=== PATIENT | female | born 1980 | race Caucasian/White ===

== ENCOUNTER 2018-11-29 13:02 | Outpatient (CLI) | payer BC | END 2018-11-29 15:35 | disposition home or self-care (01) | LOC: OBT 13:02 → L-D 13:02 → OBT 15:35 | DX: O36.8130 Decreased fetal movements, third trimester, not applicable or unspecified (principal); Z3A.39 39 weeks gestation of pregnancy | CPT/HCPCS: 76818 ==

== ENCOUNTER 2018-12-02 10:54 | Outpatient (CLI) | payer BC | END 2018-12-02 12:50 | disposition home or self-care (01) | LOC: OBT 10:54 → L-D 10:54 → OBT 12:50 | DX: O36.8130 Decreased fetal movements, third trimester, not applicable or unspecified (principal); Z3A.39 39 weeks gestation of pregnancy | CPT/HCPCS: 76818 ==

== ENCOUNTER 2018-12-05 12:19 | Inpatient (IN) | payer BC ==
[2018-12-05] MEDS ORDERED: MISOPROSTOL 200 MCG TAB PR ×2 (15:30→22:00)
[2018-12-05] MEDS ORDERED: OXYTOCIN 30 UNITS/LR 500 ML IV ×3 (15:30→22:00)
[2018-12-05] MEDS ORDERED: CARBOPROST 250 MCG INJ IM ×2 (15:30→22:00)
[2018-12-05] MEDS ORDERED: METHYLERGONOVINE 0.2 MG INJ IM ×2 (15:30→22:00)
[2018-12-05 16:06] LABS: ADD MAN DIFF? NO
[2018-12-05 16:08] LABS: BASOPHIL # 0.1 10^3/ul (0.0-0.1); BASOPHILS % 0.5 % (0.0-2.0); EOSINOPHILS # 0.1 10^3/ul (0.0-0.5); EOSINOPHILS % 0.6 % (0.0-7.0); HEMATOCRIT 38.9 % (37.0-47.0); HEMOGLOBIN 13.6 g/dl (12.0-16.0); LYMPHOCYTES # 1.9 10^3/ul (0.8-2.9); LYMPHOCYTES % 16.3 % (15.0-51.0); MEAN CORPUSCULAR HEMOGLOBIN 31.2 pg (29.0-33.0); MEAN CORPUSCULAR VOLUME 89.2 fl (82.0-101.0); MEAN PLATELET VOLUME 8.4 fl (7.4-10.4); MONOCYTE # 0.9 10^3/ul (0.3-0.9); MONOCYTES % 7.7 % (0.0-11.0); NEUTROPHIL # 8.3 10^3/ul (1.6-7.5); NEUTROPHILS % 72.5 % (39.0-77.0); PLATELET COUNT 164 10^3/UL (140-415); RED BLOOD COUNT 4.36 10^6/ul (4.20-5.40); RED CELL DISTRIBUTION WIDTH 12.8 % (11.5-14.5)
[2018-12-05 16:08] LABS: WHITE BLOOD COUNT 11.4 10^3/ul (4.8-10.8)
[2018-12-05 16:22] LABS: INR 0.88; PT RATIO 0.9
[2018-12-05 16:23] LABS: PARTIAL THROMBOPLASTIN TIME 28.6 Sec (23.0-35.0)
[2018-12-05] MEDS: LACTATED RINGER'S 1,000 ML IV ×3 (16:57→23:04)
[2018-12-05 17:01] LABS: HEPATITIS B SURFACE ANTIGEN NEGATIVE (NEGATIVE)
[2018-12-05] MEDS: CITRIC ACID/NA CITRATE 30 ML CUP PO (18:02)
[2018-12-05] MEDS ORDERED: METOCLOPRAMIDE 10 MG INJ (18:09)
[2018-12-05] MEDS ORDERED: morphine SULFATE/PF (10 MG/10 ML) INJ (18:09)
[2018-12-05] MEDS ORDERED: KETOROLAC 30 MG INJ (18:09)
[2018-12-05] MEDS ORDERED: ONDANSETRON 4 MG INJ (18:09)
[2018-12-05] MEDS ORDERED: PHENYLephrine (100 MCG/ML) 10ML SYG (18:22)
[2018-12-05] MEDS ORDERED: DIPHENHYDRAMINE 50 MG INJ IV ×3 (19:30→22:00)
[2018-12-05] MEDS ORDERED: morphine 2 MG INJ IV ×3 (19:30)
[2018-12-05] MEDS ORDERED: ONDANSETRON 4 MG INJ IV ×2 (19:30→22:00)
[2018-12-05] MEDS ORDERED: morphine (1 MG/ML) 10ML SYRINGE IV ×3 (19:30)
[2018-12-05] MEDS ORDERED: KETOROLAC 30 MG INJ IV (19:30)
[2018-12-05] MEDS ORDERED: NALOXONE (0.4 MG/ML) INJ IV (19:30)
[2018-12-05] MEDS: OXYTOCIN 30 UNITS/LR 500 ML IV (20:34)
[2018-12-05] MEDS: CEFAZOLIN 2 GM/50 ML (PMX) 50 ML IVPB (20:34)
[2018-12-05] MEDS: KETOROLAC 30 MG INJ IV (21:31)
[2018-12-05] MEDS ORDERED: OXYCODONE/ACETAMINOPHEN (5/325) TAB PO (22:00)
[2018-12-05] MEDS ORDERED: ZOLPIDEM 5 MG TAB PO (22:00)
[2018-12-06] MEDS: KETOROLAC 30 MG INJ IV ×3 (03:47→16:00)
[2018-12-06] MEDS: IBUPROFEN 600 MG TAB PO ×4 (06:00→18:00)
[2018-12-06] MEDS: LACTATED RINGER'S 1,000 ML IV ×3 (07:10→23:00)
[2018-12-06 07:44] LABS: ADD MAN DIFF? NO
[2018-12-06 07:55] LABS: BASOPHIL # 0.1 10^3/ul (0.0-0.1); BASOPHILS % 0.3 % (0.0-2.0); EOSINOPHILS % 0.2 % (0.0-7.0); HEMATOCRIT 34.1 % (37.0-47.0); HEMOGLOBIN 11.9 g/dl (12.0-16.0); LYMPHOCYTES # 1.4 10^3/ul (0.8-2.9); LYMPHOCYTES % 9.3 % (15.0-51.0); MEAN CORPUSCULAR HEMOGLOBIN 31.5 pg (29.0-33.0); MEAN CORPUSCULAR HGB CONC 34.9 g/dl (32.0-37.0); MEAN CORPUSCULAR VOLUME 90.2 fl (82.0-101.0); MEAN PLATELET VOLUME 8.9 fl (7.4-10.4); MONOCYTE # 1.4 10^3/ul (0.3-0.9); MONOCYTES % 9.2 % (0.0-11.0); NEUTROPHIL # 12.1 10^3/ul (1.6-7.5); NEUTROPHILS % 79.8 % (39.0-77.0); PLATELET COUNT 166 10^3/UL (140-415); RED BLOOD COUNT 3.78 10^6/ul (4.20-5.40)
[2018-12-06 07:55] LABS: WHITE BLOOD COUNT 15.2 10^3/ul (4.8-10.8)
[2018-12-06] MEDS: SENNA/DOCUSATE NA (8.6MG/50MG) TAB PO ×2 (09:05→21:23)
[2018-12-06 19:43] LABS: RAPID PLASMA REAGIN NONREACTIVE (NR)
[2018-12-06] MEDS: OXYCODONE/ACETAMINOPHEN (5/325) TAB PO (21:23)
[2018-12-07] MEDS: IBUPROFEN 600 MG TAB PO ×4 (00:52→18:23)
[2018-12-07] MEDS: OXYCODONE/ACETAMINOPHEN (5/325) TAB PO ×4 (02:16→21:40)
[2018-12-07] MEDS: LANOLIN HPA 1 PKT TOP ×2 (02:44)
[2018-12-07] MEDS: SENNA/DOCUSATE NA (8.6MG/50MG) TAB PO ×2 (07:56→21:37)
[2018-12-08] MEDS: IBUPROFEN 600 MG TAB PO ×3 (00:24→12:12)
[2018-12-08] MEDS: DIPHTH/TET/ACEL PERTUSS (ADULT) 0.5 ML VIAL IM* (09:24)
[2018-12-08] MEDS: SENNA/DOCUSATE NA (8.6MG/50MG) TAB PO (09:24)
== END 2018-12-08 14:55 | disposition home or self-care (01) | DRG 788 ==
LOC: OBT 12:19 → L-D 12:19 → OBT 15:10 → L-D 15:10 → PP1 22:30
PROVIDERS: Obstetrics & Gynecology
PROC: 10D00Z1 Extraction of Products of Conception, Low, Open Approach (ICD-10-PCS; principal; 2018-12-05 18:30)
DX: O48.0 Post-term pregnancy (principal); Z3A.40 40 weeks gestation of pregnancy; Z37.0 Single live birth
CPT/HCPCS: 76818; 85025; 85610; 85730; 86592; 86850; 86900; 86901; 87340; 90686; 99464